=== PATIENT | male | born 1975 | race Caucasian/White ===

== ENCOUNTER → 2020-12-22 11:27 | Outpatient (CLI) | payer SELFPAY, OTHER ==
--- NOTE | 2020-12-22 11:40 | RAD_ITS ---
STUDY: X-RAY - RIGHT CALCANEUS REASON FOR EXAM: Male, 45 years old. Fall off ladder. Pain. TECHNIQUE: 2 view(s) of the calcaneus were obtained. COMPARISON: None. FINDINGS: Comminuted minimally displaced fracture of the calcaneus with extension into the subtalar joint. RAD/Calcaneus min 2 Views IMPRESSION: Right calcaneal fracture. Electronically Signed: Gibson Magallanes MD at 12:08 EDT , Service support ,
--- NOTE | 2020-12-22 11:40 | RAD_ITS ---
STUDY: X-RAY - LEFT CALCANEUS REASON FOR EXAM: Male, 45 years old. FALL OFF LADDER TECHNIQUE: 2 view(s) of the calcaneus were obtained. COMPARISON: None. FINDINGS: Normal visualized calcaneus. RAD/Calcaneus min 2 Views IMPRESSION: Normal x-ray examination of the calcaneus. Electronically Signed: Diana Alvarez MD at 13:26 EDT Tel , Service support ,
== END ==
PROVIDERS: Visit Provider Family Medicine
DX: M25.572 Pain in left ankle and joints of left foot (principal); M25.571 Pain in right ankle and joints of right foot
CPT/HCPCS: 73650

== ENCOUNTER → 2020-12-26 06:41 | Outpatient (CLI) | payer SELFPAY, OTHER ==
--- NOTE | 2020-12-26 06:44 | CT_ITS ---
STUDY: CT RIGHT ANKLE WITHOUT CONTRAST REASON FOR EXAM: Right calcaneal fracture, surgical planning. TECHNIQUE: Thin section transaxial imaging of the ankle was obtained, with sagittal and coronal reconstructed images. Individualized dose optimization techniques were used for this CT. COMPARISON: Radiographs 12/22/2020. FINDINGS: Normal visualized distal tibia and fibula. Normal tibiotalar articulation and talar dome. There is a comminuted fracture of the posterior tuberosity and body of the calcaneus with intra-articular extension into the posterior subtalar articulation with the primary vertical fracture line at the lateral aspect of the articulation (coronal reconstruction [id number]) consistent with a Wilson type II A. Normal talus, navicular and cuboid tarsal bones. Normal talonavicular and calcaneocuboid articulations. Normal navicular-cuneiform, cuneiform tarsal bones and intercuneiform articulations. Normal tarsometatarsal articulations and visualized metatarsi. There is soft tissue swelling. There is no dislocation of the peroneal tendons. CT/Extremity Lower without Contra IMPRESSION: Comminuted intra-articular fracture of the calcaneus, Wilson type II A. Electronically Signed: Tito Hernandez MD at 7:40 EDT Tel , Service support ,
== END ==
PROVIDERS: PCP Family Medicine; Visit Provider Orthopaedic Surgery
DX: S92.011A Displaced fracture of body of right calcaneus, initial encounter for closed fracture (principal)
CPT/HCPCS: 73700; 87426; C9803